=== PATIENT | male | born 1975 | race Caucasian/White ===

== ENCOUNTER 2019-01-26 15:51 | Emergency (ER) | payer BC ==
[~2019-01-26] VITALS: Ht 175.3 cm; Wt 83.9 kg
[2019-01-26 15:59] VITALS: BP 148/78
--- NOTE | 2019-01-26 17:04 | RAD ---
CT HEAD AND CERVICAL SPINE WO Clinical indications: Neck pain. Paresthesias. COMPARISON: None available. NONCONTRAST HEAD CT Technique: Noncontrast axial cross sectional scanning of the head was performed. PQRS compliance Statement One or more of the following individualized dose reduction techniques were utilized for this study: 1. Automated exposure control 2. Adjustment of the mA and/or kV according to patient size 3. Use of iterative reconstruction technique Findings: No acute intracranial hemorrhage or midline shift or mass-effect or hydrocephalus or extra-axial fluid collection is seen. No focal hypodense area or sulci effacement is seen to indicate an acute infarct or edema radiographically. No skull fracture or pneumocephalus is seen. No opacification of the mastoid sinuses or the middle ear cavities or the paranasal sinuses is seen. The maxillary sinuses are not completely seen in this study. Impression: No acute intracranial abnormality is seen. CERVICAL SPINE CT WITHOUT CONTRAST TECHNIQUE: Noncontrast helical CT scanning of the cervical spine was performed. Multiplanar 2-D reconstructions were generated. FINDINGS: No acute fracture or discitis or lytic process is evident. No perching of facet joints is seen. Degenerative facet arthropathy is evident. There is degenerative disc space narrowing and endplate spurring at C3-4 and C4-5 and C5-6 and C6-7 and C7-T1. No significant spinal canal stenosis is evident. No prominent focal disc protrusion is seen on this nonmyelographic study. There is moderate narrowing of the right C4-5 neural foramen and moderate to severe narrowing of the left C4-5 neural foramen. There is mild narrowing of the neural foramina bilaterally at C5-6. There is moderate narrowing of the left neural foramen at C6-7 and mild narrowing of the right neural foramen at the same level. IMPRESSION: No acute fracture. Degenerative cervical spondylosis. Multilevel neural foraminal narrowing. Electronically signed by: Kishore Veronica MD (01/26/2019 5:02 PM) [id number]
[2019-01-26] MEDS ORDERED: IBUP-1060 PO (17:25)
[2019-01-26] MEDS ORDERED: CYCL10TA2 PO (17:25)
--- NOTE | 2019-01-26 17:25 | PHYS DOC ---
Past Medical History Past Medical History: No Pertinent History Past Surgical History: Other Additional Past Surgical Histo: RIGHT HIP, LEFT WRIST Alcohol Use: None Drug Use: Marijuana Adult General Chief Complaint Chief Complaint: Neck Pain [facility] HPI Patient is a 43 year old male who presents with complaining of neck pain. Patient stated he has had gradual onset of left-sided neck pain with radiation to his head and left upper extremity since yesterday as a constant sharp pain and rated his pain as 7/10. Patient complaining of numbness of left fingers for couple days without focal weakness, chest pain, nausea and vomiting, blurred vision, fever and chills. Patient complaining of foggy kinking since yesterday and states he thinks he has a stroke. Patient does not have medical problem. Review of Systems Review of Systems Constitutional: Denies fever or chills [] Eyes: Denies change in visual acuity, redness, or eye pain [] HENT: Denies nasal congestion or sore throat [] Respiratory: Denies cough or shortness of breath [] Cardiovascular: No additional information not addressed in HPI [] GI: Denies abdominal pain, nausea, vomiting, bloody stools or diarrhea [] : Denies dysuria or hematuria [] Musculoskeletal: Denies back pain or joint pain [] Integument: Denies rash or skin lesions [] Neurologic: Denies headache, focal weakness or sensory changes [] Endocrine: Denies polyuria or polydipsia [] All other systems were reviewed and found to be within normal limits, except as documented in this note. Allergies Allergies Allergies Coded Allergies Type Severity Reaction Last Updated Verified No Known Drug Allergies 01/26/19 No Physical Exam Physical Exam Constitutional: Well developed, well nourished, no acute distress, non-toxic appearance. [] HENT: Normocephalic, atraumatic, bilateral external ears normal, oropharynx moist, no oral exudates, nose normal. [] Eyes: PERRLA, EOMI, conjunctiva normal, no discharge. [] Neck: Normal range of motion, no tenderness, supple, no stridor. [] Cardiovascular:Heart rate regular rhythm, no murmur [] Lungs & Thorax: Bilateral breath sounds clear to auscultation [] Abdomen: Bowel sounds normal, soft, no tenderness, no masses, no pulsatile masses. [] Skin: Warm, dry, no erythema, no rash. [] Back: No tenderness, no CVA tenderness. [] Extremities: No tenderness, no cyanosis, no clubbing, ROM intact, no edema. [] Neurologic: Alert and oriented X 3, normal motor function, normal sensory function, no focal deficits noted. [] Psychologic: Affect normal, judgement normal, mood normal. [] Current Patient Data Vital Signs Vital Signs Date Time Temp Pulse Resp B/P (MAP) Pulse Ox O2 Delivery O2 Flow Rate FiO2 01/26/19 15:59 98.0 77 16 148/78 (101) 96 Room Air 98.0 EKG EKG [] Radiology/Procedures Radiology/Procedures [][facility] [address] [place] [address] IMAGING REPORT Signed PATIENT: QI HODGE ACCOUNT: [id number] : 1975 LOCATION: ER AGE: 43 SEX: M EXAM STATUS: REG ER ORD. PHYSICIAN: MEG HAYNES MD REASON: neck pain, paresthesia PROCEDURE: CT HEAD AND CERVICAL SPINE WO CT HEAD AND CERVICAL SPINE WO Clinical indications: Neck pain. Paresthesias. COMPARISON: None available. NONCONTRAST HEAD CT Technique: Noncontrast axial cross sectional scanning of the head was performed. PQRS compliance Statement One or more of the following individualized dose reduction techniques were utilized for this study: 1. Automated exposure control 2. Adjustment of the mA and/or kV according to patient size 3. Use of iterative reconstruction technique Findings: No acute intracranial hemorrhage or midline shift or mass-effect or hydrocephalus or extra-axial fluid collection is seen. No focal hypodense area or sulci effacement is seen to indicate an acute infarct or edema radiographically. No skull fracture or pneumocephalus is seen. No opacification of the mastoid sinuses or the middle ear cavities or the paranasal sinuses is seen. The maxillary sinuses are not completely seen in this study. Impression: No acute intracranial abnormality is seen. CERVICAL SPINE CT WITHOUT CONTRAST TECHNIQUE: Noncontrast helical CT scanning of the cervical spine was performed. Multiplanar 2-D reconstructions were generated. FINDINGS: No acute fracture or discitis or lytic process is evident. No perching of facet joints is seen. Degenerative facet arthropathy is evident. There is degenerative disc space narrowing and endplate spurring at C3-4 and C4-5 and C5-6 and C6-7 and C7-T1. No significant spinal canal stenosis is evident. No prominent focal disc protrusion is seen on this nonmyelographic study. There is moderate narrowing of the right C4-5 neural foramen and moderate to severe narrowing of the left C4-5 neural foramen. There is mild narrowing of the neural foramina bilaterally at C5-6. There is moderate narrowing of the left neural foramen at C6-7 and mild narrowing of the right neural foramen at the same level. IMPRESSION: No acute fracture. Degenerative cervical spondylosis. Multilevel neural foraminal narrowing. Electronically signed by: Rosi Silver MD (01/26/2019 5:02 PM) [id number] DICTATED and SIGNED BY: ROSI SILVER MD DATE: 01/26/19 0062 Course & Med Decision Making Course & Med Decision Making Pertinent Imaging studies reviewed. (See chart for details) Evaluation of patient in ER showed 43-year-old patient with complaining of left- sided neck pain since yesterday that getting force with movement associated with numbness and 40 kinking. Patient had unremarkable physical exam with NIH scale of 0. CT head and cervical spine showed spinal stenosis without acute fracture or sign of stroke. Patient felt better with applying ice pack on his neck and didn't want to have pain medication in ER. Plan to discharge patient home with diagnosis of cervical muscle strain and cervical radiculopathy. Dragon Disclaimer Dragon Disclaimer This electronic medical record was generated, in whole or in part, using a voice recognition dictation system. Departure Departure Impression: Primary Impression: Acute cervical myofascial strain Additional Impression: Cervical radiculopathy Disposition: HOME, SELF-CARE (at 1723) Condition: STABLE Referrals: UNKNOWN PCP NAME (PCP) Patient Instructions: Cervical Radiculopathy, Cervical Sprain Additional Instructions: Drink plenty of liquids Follow-up with your primary care physician in 3-5 days Return to ER if not getting better Apply ice on left side of neck Scripts Ibuprofen (IBUPROFEN) 800 Mg Tablet 800 MG PO PRN Q8HRS PRN for INFLAMMATION, #20 TAB Prov: MEG HAYNES MD 01/26/19 Cyclobenzaprine Hcl (CYCLOBENZAPRINE HCL) 10 Mg Tablet 1 TAB PO TID, #21 TAB Prov: MEG HAYNES MD 01/26/19 Problem Qualifiers Primary Impression: Acute cervical myofascial strain Encounter type: initial encounter Qualified Codes: S16.1XXA - Strain of muscle, fascia and tendon at neck level, initial encounter MEG HAYNES MD Jan 26, 2019 17:25
== END 2019-01-26 17:34 | disposition home or self-care (01) ==
LOC: ER 15:51
DX: S16.1XXA Strain of muscle, fascia and tendon at neck level, initial encounter (principal); M54.12 Radiculopathy, cervical region; R51 Headache; R20.2 Paresthesia of skin; X58.XXXA Exposure to other specified factors, initial encounter; Y93.89 Activity, other specified; Y92.89 Other specified places as the place of occurrence of the external cause; Y99.8 Other external cause status
CPT/HCPCS: 70450; 72125; 99284